=== PATIENT | female | born 1960 | race Caucasian/White ===

== ENCOUNTER 2021-10-29 14:45 | Outpatient (CLI) | payer OTHER | END 2021-10-29 14:46 | disposition home or self-care (01) | LOC: EEG 14:45 | PROVIDERS: ATTEND Psychiatry & Neurology Neurology | DX: R55 Syncope and collapse (principal); R41.89 Other symptoms and signs involving cognitive functions and awareness | CPT/HCPCS: 95816; 95957 ==